=== PATIENT | female | born 1960 | race Caucasian/White ===

== ENCOUNTER 2018-03-28 09:07 | Outpatient (CLI) | payer BC | END 2018-03-28 09:08 | disposition home or self-care (01) | LOC: BICMAMMO 09:07 | PROVIDERS: ATTEND Student in an Organized Health Care Education/Training Program | DX: Z12.31 Encounter for screening mammogram for malignant neoplasm of breast (principal) | CPT/HCPCS: 77063; 77067 ==

== ENCOUNTER 2018-04-07 07:07 | Outpatient (CLI) | payer BC ==
--- NOTE | 2018-04-07 10:02 | ULT ---
HEPATIC DOPPLER ULTRASOUND: HISTORY: Transaminitis. COMPARISON: None. TECHNIQUE: Sanders-scale, color-flow, and Doppler imaging with spectral wave-form analysis was performed of the [facility] er. FINDINGS: The head and proximal pancreatic body have a normal echotexture. The visualized IVC and aorta are un remarkable. The visualized hepatic parenchymal has a normal echotexture. No hepatic masses or intrahepatic bilia ry dilatation. The contour of the hepatic margin is maintained. The right hepatic lobe measures 15 cm. The spleen has a normal echotexture, measuring 7.8 cm. Common bile duct diameter is difficult to mae reciate on this exam. No sonographic evidence of cholelithiasis, gallbladder wall thickening, or per icholecystic fluid. Negative Lynch sign. HEPATIC DOPPLER: There is patency and appropriate directional flow in the main portal vein, the righ t portal vein, the left portal vein, the hepatic artery, the middle hepatic vein, the right hepatic v ein, the left hepatic vein, and the splenic vein and artery. IMPRESSION: 1. Normal hepatic Doppler. 2. Normal echotexture of the liver. POS: [facility]
== END 2018-04-07 07:08 | disposition home or self-care (01) ==
LOC: SCSULT 07:07
PROVIDERS: ATTEND Internal Medicine
DX: R74.0 Nonspecific elevation of levels of transaminase and lactic acid dehydrogenase [LDH] (principal)
CPT/HCPCS: 76705

== ENCOUNTER 2018-06-13 16:00 | Outpatient (CLI) | payer BC ==
--- NOTE | 2018-06-13 18:06 | RAD ---
PA AND LATERAL CHEST X-RAY: 06/13/2018 HISTORY: Abnormal breath sounds on right side. FINDINGS: The cardiac silhouette and pulmonary vasculature are within normal limits. Minimal biapical scarring is present. The lungs are otherwise clear. [place] screws overly the right humeral head. IMPRESSION: No acute cardiopulmonary process. POS: [facility]
== END 2018-06-13 16:01 | disposition home or self-care (01) ==
LOC: BICRAD 16:00
PROVIDERS: ATTEND Internal Medicine
DX: R06.89 Other abnormalities of breathing (principal)
CPT/HCPCS: 71046

== ENCOUNTER 2019-04-11 13:39 | Outpatient (CLI) | payer BC ==
--- NOTE | 2019-04-11 14:16 | MMO ---
Bilateral MAMMO Bilat Screen [facility]. CLINICAL HISTORY: Patient is 58 years old and is seen for screening. The patient has no family history of breast cancer. The patient has no personal history of cancer. The patient has a history of left Ultrasound Guided Core Biopsy in March,, left Excisional Biopsy in 1999 - benign and left cyst aspiration in ?2001 - benign. VIEWS: The views performed were: bilateral craniocaudal with tomosynthesis and bilateral mediolateral oblique with tomosynthesis. FILMS COMPARED: The present examination has been compared to prior imaging studies performed at [facility] on 09/23/2015, 04/06/2016, 03/29/2017 and 03/28/2018. MAMMOGRAM FINDINGS: There are scattered fibroglandular densities. Finding 1: There are stable benign appearing calcifications seen in both breasts. Finding 2: There are stable benign appearing densities seen in both breasts. Finding 3: There is a biopsy clip seen in the left breast. There are no suspicious masses, suspicious calcifications, or new areas of architectural distortion. IMPRESSION: THERE IS NO MAMMOGRAPHIC EVIDENCE OF MALIGNANCY. A ROUTINE FOLLOW-UP MAMMOGRAM IN 1 YEAR IS RECOMMENDED. THE RESULTS OF THIS EXAM WERE SENT TO THE PATIENT. ACR BI-RADS Category 2 - Benign finding MAMMOGRAPHY NOTE: 1. A negative mammogram report should not delay a biopsy if a dominant of clinically suspicious mass is present. 2. Approximately 10% to 15% of breast cancers are not detected by mammography. 3. Adenosis and dense breasts may obscure an underlying neoplasm. Reported by: MOISES TIWARI MD Electonically Signed: [id number]
== END 2019-04-11 13:40 | disposition home or self-care (01) ==
LOC: BICMAMMO 13:39
PROVIDERS: ATTEND Internal Medicine
DX: Z12.31 Encounter for screening mammogram for malignant neoplasm of breast (principal); Z91.89 Other specified personal risk factors, not elsewhere classified
CPT/HCPCS: 77063; 77067

== ENCOUNTER 2019-04-12 08:23 | Outpatient (CLI) | payer BC ==
--- NOTE | 2019-04-12 14:17 | BD ---
BONE DENSITOMETRY: Date: 04/12/19 HISTORY: Postmenopausal osteoporosis screening. FINDINGS: Lumbar Spine: BMD (g/cm2) L1 1.034 T-Score: 0.4 L2 1.199 T-Score: 1.6 L3 1.269 T-Score: 1.7 L4 1.355 T-Score: 2.7 Total 1.216 T-Score: 1.5 Left Femoral Neck: 0.775 T-Score: -0.7 Total Femur: 1.043 T-Score: 0.8 IMPRESSION: Bone mineral density of the lumbar spine and femoral neck are both within normal range. POS: [facility]
== END 2019-04-12 08:24 | disposition home or self-care (01) ==
LOC: BICMAMMO 08:23
PROVIDERS: ATTEND Internal Medicine
DX: Z13.820 Encounter for screening for osteoporosis (principal); Z78.0 Asymptomatic menopausal state
CPT/HCPCS: 77080

== ENCOUNTER 2020-04-08 10:47 | Outpatient (CLI) | payer BC ==
--- NOTE | 2020-04-08 11:41 | MMO ---
Bilateral MAMMO Bilat Screen [facility]. CLINICAL HISTORY: Patient is 59 years old and is seen for screening. The patient has no family history of breast cancer. The patient has no personal history of cancer. The patient has a history of left Ultrasound Guided Core Biopsy in March,, left Excisional Biopsy in 1999 - benign and left cyst aspiration in ?2001 - benign. VIEWS: The views performed were: bilateral craniocaudal with tomosynthesis and bilateral mediolateral oblique with tomosynthesis. FILMS COMPARED: The present examination has been compared to prior imaging studies performed at [facility] on 04/06/2016, 03/29/2017, 03/28/2018 and 04/11/2019. This study has been interpreted with the assistance of computer-aided detection. MAMMOGRAM FINDINGS: There are scattered fibroglandular densities. Finding 1: There are stable benign appearing calcifications seen in both breasts. Finding 2: There are stable benign appearing densities seen in both breasts. Finding 3: There is a stable biopsy clip seen in the left breast. There are no suspicious masses, suspicious calcifications, or new areas of architectural distortion. IMPRESSION: THERE IS NO MAMMOGRAPHIC EVIDENCE OF MALIGNANCY. A ROUTINE FOLLOW-UP MAMMOGRAM IN 1 YEAR IS RECOMMENDED. THE RESULTS OF THIS EXAM WERE SENT TO THE PATIENT. ACR BI-RADS Category 2 - Benign finding MAMMOGRAPHY NOTE: 1. A negative mammogram report should not delay a biopsy if a dominant of clinically suspicious mass is present. 2. Approximately 10% to 15% of breast cancers are not detected by mammography. 3. Adenosis and dense breasts may obscure an underlying neoplasm. Reported by: JUAN DUMONT MD Electonically Signed: [id number]
== END 2020-04-08 10:48 | disposition home or self-care (01) ==
LOC: BICMAMMO 10:47
PROVIDERS: ATTEND Student in an Organized Health Care Education/Training Program
DX: Z12.31 Encounter for screening mammogram for malignant neoplasm of breast (principal); Z91.89 Other specified personal risk factors, not elsewhere classified
CPT/HCPCS: 77063; 77067

== ENCOUNTER 2020-12-09 10:29 | Outpatient (CLI) | payer BC | END 2020-12-09 10:30 | disposition home or self-care (01) | LOC: BICRAD 10:29 | PROVIDERS: ATTEND Physician Assistant | DX: M54.42 Lumbago with sciatica, left side (principal); G89.29 Other chronic pain; M47.816 Spondylosis without myelopathy or radiculopathy, lumbar region; M43.17 Spondylolisthesis, lumbosacral region | CPT/HCPCS: 72100 ==

== ENCOUNTER 2020-12-11 14:48 | Outpatient (CLI) | payer BC | END 2020-12-11 14:49 | disposition home or self-care (01) | LOC: BICRAD 14:48 | PROVIDERS: ATTEND Internal Medicine | DX: M43.10 Spondylolisthesis, site unspecified (principal); M47.816 Spondylosis without myelopathy or radiculopathy, lumbar region | CPT/HCPCS: 72110 ==

== ENCOUNTER 2021-04-16 13:27 | Outpatient (CLI) | payer BC | END 2021-04-16 13:28 | disposition home or self-care (01) | LOC: BICMAMMO 13:27 | PROVIDERS: ATTEND Student in an Organized Health Care Education/Training Program | DX: Z12.31 Encounter for screening mammogram for malignant neoplasm of breast (principal); Z91.89 Other specified personal risk factors, not elsewhere classified; Z98.890 Other specified postprocedural states | CPT/HCPCS: 77063; 77067 ==

== ENCOUNTER 2021-06-16 07:26 | Outpatient (CLI) | payer BC | END 2021-06-16 07:27 | disposition home or self-care (01) | LOC: LABBT 07:26 | PROVIDERS: ATTEND Surgery | DX: Z01.818 Encounter for other preprocedural examination (principal); M43.16 Spondylolisthesis, lumbar region; M48.062 Spinal stenosis, lumbar region with neurogenic claudication | CPT/HCPCS: 80048; 85027; 85610; 85730; 86850; 86900; 86901; 93005; 93010 ==

== ENCOUNTER 2021-06-20 08:07 | Inpatient (IN) | payer BC ==
[2021-06-16 08:13] LABS: Hemoglobin 12.8 g/dL (12.0-15.5); Mean Corpuscular HGB CONC 32.1 g/dL (32.0-36.0); Mean Corpuscular Hemoglobin 29.6 pg (27.0-33.0); Mean Corpuscular Volume 92.4 fl (81.6-98.3); Mean Platelet Volume 9.8 fl (7.4-10.4); Platelet Count 209 10x3/uL (150-450); RBC Distribution Width 11.9 % (11.5-14.5); Red Blood Cell (RBC) Count 4.32 10x6/uL (3.90-5.03); White Blood Cell (WBC) Count 4.8 10x3/uL (3.5-10.5)
[2021-06-16 08:24] LABS: INR-International Normal Ratio 0.9; PTT 25.3 sec (22.0-33.0); Prothrombin Time 10.3 sec (9.5-12.1)
[2021-06-16 08:25] LABS: Anion Gap 14 mmol/L (10-20); BUN (Urea Nitrogen) 24 mg/dL (9.8-20.1); Calc. Creatinine Clearance 0 mL/min (70-130); Calcium 10.4 mg/dL (7.8-10.44); Carbon Dioxide 23 mmol/L (23-31); Chloride 106 mmol/L (98-107); Glucose 86 mg/dL (80-115); Potassium 4.9 mmol/L (3.5-5.1); Sodium 138 mmol/L (136-145)
[2021-06-20] MEDS ORDERED: Acetaminophen 500 MG TAB ONE (08:41)
[2021-06-20] MEDS ORDERED: Scopolamine 1.5 mg/72 hour Patch ONE (08:41)
[2021-06-20] MEDS ORDERED: Midazolam HCl 2 mg/2 ml Vial ONE (08:41)
[2021-06-20] MEDS ORDERED: ceFAZolin 2 GM/DEX 5% 100 ML BAG ONE (08:42)
[2021-06-20] MEDS ORDERED: Fentanyl 100 MCG/2 ML VIAL ONE ×4 (10:28→16:27)
[2021-06-20] MEDS ORDERED: ePHEDrine 50 MG/ML VIAL ONE (10:58)
[2021-06-20] MEDS ORDERED: Ondansetron PF 4 MG/2 ML Vial ONE (10:58)
[2021-06-20] MEDS ORDERED: PROPOFOL 200 MG/20 ML VIAL ONE (10:58)
[2021-06-20] MEDS ORDERED: Rocuronium Bromide 10 MG/ML (10ML VIAL) ONE (10:58)
[2021-06-20] MEDS ORDERED: Lidocaine 1% PF 5 ML VIAL ONE (10:58)
[2021-06-20] MEDS ORDERED: PHENYLEPHRINE-NS 100 MCG/ML 10 ML SYRINGE ONE (10:58)
[2021-06-20] MEDS ORDERED: Dexamethasone 20 MG/5 ML VIAL ONE (10:58)
[2021-06-20] MEDS ORDERED: Glycopyrrolate 0.2 MG/ML 5 ML SYRINGE ONE (10:58)
[2021-06-20] MEDS ORDERED: Thrombin 5000 UNITS/5 ML VIAL ONE ×2 (12:00→13:30)
[2021-06-20] MEDS ORDERED: Rocuronium Bromide 50 MG/5 ML VIAL ONE (12:46)
[2021-06-20] MEDS ORDERED: HYDROmorphone 2 MG/ML VIAL ONE (14:49)
[2021-06-20] MEDS ORDERED: Mag-Al 1200 mg/1200 mg/30 ML UDCUP PO PRN (15:29)
[2021-06-20] MEDS ORDERED: tiZANidine HCl 4 MG TAB PO PRN (15:29)
[2021-06-20] MEDS ORDERED: oxyCODONE 5 MG TAB PO PRN (15:33)
[2021-06-20] MEDS ORDERED: Promethazine HCl 25 MG/ML VIAL IM PRN (15:35)
[2021-06-20] MEDS ORDERED: Ondansetron HCl/PF 4 MG/2 ML Vial IVP PRN (15:35)
[2021-06-20] MEDS ORDERED: Promethazine HCl 25 MG/ML VIAL IVPB PRN (15:35)
[2021-06-20] MEDS ORDERED: HYDROmorphone 2 MG/ML VIAL SLOW IVP PRN (15:35)
[2021-06-20] MEDS ORDERED: Bisacodyl 5 MG TAB PO PRN (15:35)
[2021-06-20] MEDS ORDERED: diphenhydrAMINE 25 MG CAP PO PRN (15:35)
[2021-06-20] MEDS ORDERED: ZOLMITRIPTAN 5 MG PO PRN (15:36)
[2021-06-20] MEDS ORDERED: Rizatriptan Benzoate 10 MG MLT TAB PO PRN (15:36)
[2021-06-20] MEDS ORDERED: [UNRECOGNIZED DRUG - OTHER] PO PRN (15:36)
[2021-06-20] MEDS ORDERED: SOY GERM PO PRN (15:36)
[2021-06-20] MEDS ORDERED: PUMPKIN SEED EXTRACT PO PRN (15:36)
[2021-06-20] MEDS ORDERED: HYDROmorphone 0.5 MG/0.5 ML SYRINGE ONE ×3 (15:45→16:14)
[2021-06-20] MEDS ORDERED: Promethazine HCl 25 MG/ML VIAL ONE (17:03)
[2021-06-20] MEDS ORDERED: ceFAZolin Sodium/D5W 2 GM in Premix Bag 1 BAG IVPB SCH (18:30)
[2021-06-20] MEDS ORDERED: Albuterol 200 PUFF (6.7GM INHALER) INH PRN (18:31)
[2021-06-20] MEDS ORDERED: Diazepam 5 MG TAB PO PRN (18:37)
[2021-06-20] MEDS ORDERED: Melatonin 3 MG TAB PO PRN (18:37)
[2021-06-20] MEDS ORDERED: SUMAtriptan Succinate 50 MG TAB PO PRN (18:39)
[2021-06-20] MEDS: Morphine 4 MG/ML VIAL SLOW IVP PRN ×2 (19:16→22:13)
[2021-06-20] MEDS: Sodium Chloride 0.9% 1,000 ML IV SCH (19:35)
[2021-06-20] MEDS: Ondansetron PF 4 MG/2 ML Vial IVP PRN (19:36)
[2021-06-20] MEDS: Ketorolac Tromethamine 30 MG/ML VIAL IVP PRN (19:57)
[2021-06-20] MEDS: Docusate 100 MG CAP PO SCH (20:05)
[2021-06-20] MEDS: Ubidecarenone 50 MG CAP PO SCH (20:06)
[2021-06-20] MEDS: Zolpidem Tartrate 5 MG TAB PO SCH (20:19)
[2021-06-20 21:35] VITALS: BMI 25.9
[2021-06-20] MEDS: ceFAZolin Sodium/D5W 2 GM in Premix Bag 1 BAG IVPB SCH (22:05)
[2021-06-20] MEDS: Promethazine HCl 12.5 MG in Sodium Chloride 0.9% 50 ML IVPB PRN (22:21)
[2021-06-21] MEDS: tiZANidine HCl 4 MG TAB PO PRN ×2 (01:09→11:58)
[2021-06-21] MEDS: Morphine 4 MG/ML VIAL SLOW IVP PRN ×3 (01:09→09:41)
[2021-06-21] MEDS: Ondansetron PF 4 MG/2 ML Vial IVP PRN ×3 (01:10→16:15)
[2021-06-21] MEDS: Ketorolac Tromethamine 30 MG/ML VIAL IVP PRN ×2 (04:48→11:52)
[2021-06-21] MEDS: Promethazine HCl 12.5 MG in Sodium Chloride 0.9% 50 ML IVPB PRN ×3 (04:49→19:32)
[2021-06-21] MEDS: Sodium Chloride 0.9% 1,000 ML IV SCH ×3 (04:52→21:11)
[2021-06-21] MEDS: ceFAZolin Sodium/D5W 2 GM in Premix Bag 1 BAG IVPB SCH (05:07)
[2021-06-21] MEDS: CEFAZOLIN 2 GM, Admixture Fee 1 EACH in Sodium Chloride 0.9% 100 ML IVPB SCH ×3 (05:09→21:07)
[2021-06-21] MEDS: Spironolactone 25 MG TAB PO SCH (09:00)
[2021-06-21] MEDS ORDERED: ESTRADIOL TOP SCH (09:00)
[2021-06-21] MEDS ORDERED: Liothyronine Sodium 5 MCG TAB PO SCH (09:00)
[2021-06-21] MEDS ORDERED: PRASTERONE 25 MG PO SCH (09:00)
[2021-06-21] MEDS ORDERED: [UNRECOGNIZED DRUG - OTHER] PO SCH (09:00)
[2021-06-21] MEDS ORDERED: Thyroid 30 MG TAB PO SCH (09:00)
[2021-06-21] MEDS ORDERED: CALCIUM GLYCEROPHOSPHATE 65 MG PO SCH (09:00)
[2021-06-21] MEDS ORDERED: Progesterone,Micronized 100 MG CAP PO SCH ×2 (09:00→22:45)
[2021-06-21 10:09] LABS: Hemoglobin 10.9 g/dL (12.0-16.0)
[2021-06-21] MEDS: Multivit, Therapeutic 1 TAB PO SCH (11:49)
[2021-06-21] MEDS: Cholecalciferol (Vitamin D3) 400 UNITS TAB PO SCH (11:51)
[2021-06-21] MEDS: Ubidecarenone 50 MG CAP PO SCH ×2 (11:52→21:07)
[2021-06-21] MEDS: Docusate 100 MG CAP PO SCH ×2 (12:07→21:07)
[2021-06-21] MEDS: Fentanyl CADD 100 ML IVPB SCH (12:58)
[2021-06-21] MEDS: Zolpidem Tartrate 5 MG TAB PO SCH (21:13)
[2021-06-21] MEDS: Rizatriptan Benzoate 10 MG MLT TAB PO PRN (23:24)
[2021-06-22] MEDS: Ondansetron PF 4 MG/2 ML Vial IVP PRN ×4 (02:18→20:40)
[2021-06-22] MEDS: CEFAZOLIN 2 GM, Admixture Fee 1 EACH in Sodium Chloride 0.9% 100 ML IVPB SCH ×2 (05:38→13:51)
[2021-06-22] MEDS: Thyroid 30 MG TAB PO SCH (05:38)
[2021-06-22] MEDS: Liothyronine Sodium 5 MCG TAB PO SCH (05:38)
[2021-06-22] MEDS: Promethazine HCl 12.5 MG in Sodium Chloride 0.9% 50 ML IVPB PRN ×4 (05:39→23:30)
[2021-06-22] MEDS: Rizatriptan Benzoate 10 MG MLT TAB PO PRN (06:58)
[2021-06-22] MEDS ORDERED: TESTOSTERONE TOP SCH (09:00)
[2021-06-22] MEDS ORDERED: ESTRADIOL TOP SCH (09:00)
[2021-06-22] MEDS: Multivit, Therapeutic 1 TAB PO SCH (09:05)
[2021-06-22] MEDS: Ubidecarenone 50 MG CAP PO SCH ×2 (09:05→19:16)
[2021-06-22] MEDS: Cholecalciferol (Vitamin D3) 400 UNITS TAB PO SCH (09:05)
[2021-06-22] MEDS: Docusate 100 MG CAP PO SCH ×2 (09:05→19:14)
[2021-06-22] MEDS: Sodium Chloride 0.9% 1,000 ML IV SCH ×2 (09:09→13:52)
[2021-06-22] MEDS: Fentanyl CADD 100 ML IVPB SCH (09:35)
[2021-06-22] MEDS: Spironolactone 25 MG TAB PO SCH ×2 (11:51→19:17)
[2021-06-22] MEDS: Polyethylene Glycol 3350 17 GM Packet PO PRN (17:44)
[2021-06-22] MEDS: Progesterone,Micronized 100 MG CAP PO SCH (19:16)
[2021-06-22] MEDS: Zolpidem Tartrate 5 MG TAB PO SCH (19:17)
[2021-06-22] MEDS: ESTRADIOL TOP SCH (19:21)
[2021-06-22] MEDS: TESTOSTERONE TOP SCH (19:21)
[2021-06-23] MEDS: Ondansetron PF 4 MG/2 ML Vial IVP PRN (03:16)
[2021-06-23] MEDS: Sodium Chloride 0.9% 1,000 ML IV SCH ×2 (03:19→19:13)
[2021-06-23] MEDS: Fentanyl CADD 100 ML IVPB SCH (03:44)
[2021-06-23] MEDS: Promethazine HCl 12.5 MG in Sodium Chloride 0.9% 50 ML IVPB PRN (05:51)
[2021-06-23] MEDS: Ketorolac Tromethamine 30 MG/ML VIAL IVP PRN ×2 (05:52→20:39)
[2021-06-23] MEDS: Thyroid 30 MG TAB PO SCH (05:55)
[2021-06-23] MEDS: Liothyronine Sodium 5 MCG TAB PO SCH (05:55)
[2021-06-23] MEDS: Cholecalciferol (Vitamin D3) 400 UNITS TAB PO SCH (10:00)
[2021-06-23] MEDS: Multivit, Therapeutic 1 TAB PO SCH (10:00)
[2021-06-23] MEDS: Docusate 100 MG CAP PO SCH ×2 (10:00→20:31)
[2021-06-23] MEDS: Ubidecarenone 50 MG CAP PO SCH ×2 (10:00→20:32)
[2021-06-23 10:59] LABS: #Eosinphils 0.2 thou/uL (0.0-0.7); #Lymphocytes 1.3 thou/uL (1.20-3.40); #Monocytes 0.5 thou/uL (0.11-0.59); #Neutrophils 4.4 thou/uL (1.40-6.50); %Basophils 0.5 % (0.0-1.0); %Eosinophils 2.9 % (0.0-10.0); %Lymphocytes 19.9 % (21.0-51.0); %Monocytes 8.1 % (0.0-10.0); %Neutrophils 68.5 % (42.0-75.0); Mean Corpuscular HGB CONC 32.7 g/dL (32.0-36.0); Mean Corpuscular Hemoglobin 30.9 pg (27.0-31.0); Mean Corpuscular Volume 94.6 fL (78.0-98.0); Mean Platelet Volume 7.5 fL (7.4-10.4); Platelet Count 136 thou/uL (130-400); RBC Distribution Width 11.2 % (11.5-14.5); Red Blood Cell (RBC) Count 3.24 mill/uL (4.20-5.40); White Blood Cell (WBC) Count 6.4 thou/uL (4.8-10.8)
[2021-06-23 12:05] LABS: Anion Gap 10 mmol/L (10-20); BUN (Urea Nitrogen) 9 mg/dL (9.8-20.1); Calc. Creatinine Clearance 105 mL/min (70-130); Carbon Dioxide 23 mmol/L (23-31); Chloride 108 mmol/L (98-107); Glucose 134 mg/dL (80-115); Potassium 3.9 mmol/L (3.5-5.1); Sodium 137 mmol/L (136-145)
[2021-06-23] MEDS: Ibuprofen 800 MG TAB PO PRN (13:45)
[2021-06-23] MEDS ORDERED: CEFAZOLIN 2 GM in Premix Bag 1 BAG IVPB SCH (14:00)
[2021-06-23] MEDS: ceFAZolin Sodium/D5W 2 GM in Premix Bag 1 BAG IVPB SCH ×2 (15:23→21:46)
[2021-06-23] MEDS ORDERED: Ondansetron ODT 4 MG TAB PO PRN (16:33)
[2021-06-23] MEDS ORDERED: Promethazine 25 MG TAB PO PRN (16:33)
[2021-06-23] MEDS ORDERED: oxyCODONE/Acetaminophen 5 mg/325 mg Tablet PO PRN (16:35)
[2021-06-23] MEDS: traMADol HCl 50 MG TAB PO PRN ×2 (16:56→21:43)
[2021-06-23] MEDS: ESTRADIOL TOP SCH (20:32)
[2021-06-23] MEDS: TESTOSTERONE TOP SCH (20:32)
[2021-06-23] MEDS: Progesterone,Micronized 100 MG CAP PO SCH (20:33)
[2021-06-23] MEDS: Spironolactone 25 MG TAB PO SCH (20:33)
[2021-06-23] MEDS: Zolpidem Tartrate 5 MG TAB PO SCH (20:34)
[2021-06-23] MEDS: Polyethylene Glycol 3350 17 GM Packet PO PRN (20:39)
[2021-06-24] MEDS: Liothyronine Sodium 5 MCG TAB PO SCH (05:57)
[2021-06-24] MEDS: ceFAZolin Sodium/D5W 2 GM in Premix Bag 1 BAG IVPB SCH (05:57)
[2021-06-24] MEDS: Thyroid 30 MG TAB PO SCH (05:58)
[2021-06-24] MEDS: Ibuprofen 800 MG TAB PO PRN (08:02)
[2021-06-24] MEDS: Docusate 100 MG CAP PO SCH (08:02)
[2021-06-24] MEDS: Ubidecarenone 50 MG CAP PO SCH (08:02)
[2021-06-24] MEDS: Multivit, Therapeutic 1 TAB PO SCH (08:02)
[2021-06-24] MEDS: Cholecalciferol (Vitamin D3) 400 UNITS TAB PO SCH (08:02)
[2021-06-24 08:52] VITALS: BP 133/63; TEMP 97.1
[2021-06-24] MEDS ORDERED: FLU VACC QS2021-22(6MOS UP)/PF 60 MCG/0.5 ML SYRINGE IM ONE (09:00)
[2021-06-24] MEDS: Sodium Chloride 0.9% 1,000 ML IV SCH (10:48)
[2021-06-24] MEDS: traMADol HCl 50 MG TAB PO PRN (11:21)
== END 2021-06-24 13:48 | disposition home health service (06) | DRG 455 ==
LOC: SDC 08:07 → SURG A 15:29 → ONC 17:43
PROVIDERS: ADMIT Surgery; ATTEND Surgery
PROC: 0SG10A0 Fusion of 2 or more Lumbar Vertebral Joints with Interbody Fusion Device, Anterior Approach, Anterior Column, Open Approach (ICD-10-PCS; principal; 2021-06-20)
PROC: 0SG3071 Fusion of Lumbosacral Joint with Autologous Tissue Substitute, Posterior Approach, Posterior Column, Open Approach (ICD-10-PCS; 2021-06-20)
PROC: 0SB40ZZ Excision of Lumbosacral Disc, Open Approach (ICD-10-PCS; 2021-06-20)
PROC: 01NB0ZZ Release Lumbar Nerve, Open Approach (ICD-10-PCS; 2021-06-20)
PROC: 01NR0ZZ Release Sacral Nerve, Open Approach (ICD-10-PCS; 2021-06-20)
DX: M48.062 Spinal stenosis, lumbar region with neurogenic claudication (principal); Z20.822 Contact with and (suspected) exposure to COVID-19; M54.16 Radiculopathy, lumbar region; M43.16 Spondylolisthesis, lumbar region; M43.17 Spondylolisthesis, lumbosacral region; G43.909 Migraine, unspecified, not intractable, without status migrainosus; E03.9 Hypothyroidism, unspecified; G89.4 Chronic pain syndrome; J30.2 Other seasonal allergic rhinitis; F41.9 Anxiety disorder, unspecified; Z88.5 Allergy status to narcotic agent; Z88.1 Allergy status to other antibiotic agents; Z91.018 Allergy to other foods; Z90.710 Acquired absence of both cervix and uterus; Z87.440 Personal history of urinary (tract) infections
CPT/HCPCS: 36415; 76000; 80048; 85018; 85025; 85027; 85610; 85730; 86850; 86900; 86901; 93970; C1713; C1768; J0690; J1100; J1170; J1885; J2250; J2270; J2405; J2550; J2704; J3010; J3370; J3490; J7050; Q0162; Q0169

== ENCOUNTER 2021-08-04 13:32 | Outpatient (CLI) | payer BC | END 2021-08-04 13:33 | disposition home or self-care (01) | LOC: SCSRAD 13:32 | PROVIDERS: ATTEND Surgery | DX: M54.16 Radiculopathy, lumbar region (principal); M43.16 Spondylolisthesis, lumbar region; Z98.890 Other specified postprocedural states | CPT/HCPCS: 72100 ==

== ENCOUNTER 2022-02-27 13:04 | Outpatient (CLI) | payer BC | END 2022-02-27 13:05 | disposition home or self-care (01) | LOC: BICRAD 13:04 | PROVIDERS: ATTEND Internal Medicine | DX: R05.9 Cough, unspecified (principal) | CPT/HCPCS: 71046 ==

== ENCOUNTER 2022-04-16 08:09 | Outpatient (CLI) | payer BC | END 2022-04-16 08:10 | disposition home or self-care (01) | LOC: BICMAMMO 08:09 | PROVIDERS: ATTEND Internal Medicine | DX: Z12.31 Encounter for screening mammogram for malignant neoplasm of breast (principal); Z91.89 Other specified personal risk factors, not elsewhere classified; Z98.890 Other specified postprocedural states | CPT/HCPCS: 77063; 77067 ==

== ENCOUNTER 2023-04-16 09:30 | Outpatient (CLI) | payer BC | END 2023-04-16 09:31 | disposition home or self-care (01) | LOC: BICMAMMO 09:30 | PROVIDERS: ATTEND Internal Medicine | DX: Z12.31 Encounter for screening mammogram for malignant neoplasm of breast (principal); Z91.89 Other specified personal risk factors, not elsewhere classified; Z98.890 Other specified postprocedural states | CPT/HCPCS: 77063; 77067 ==

== ENCOUNTER 2025-04-18 08:31 | Outpatient (CLI) | payer BC | END 2025-04-18 08:32 | disposition home or self-care (01) | LOC: BICMAMMO 08:31 | PROVIDERS: ATTEND Student in an Organized Health Care Education/Training Program | DX: Z12.31 Encounter for screening mammogram for malignant neoplasm of breast (principal); Z91.89 Other specified personal risk factors, not elsewhere classified | CPT/HCPCS: 77063; 77067 ==